=== PATIENT | female | born 1935 | race Caucasian/White ===

== ENCOUNTER 2016-06-02 18:44 | Inpatient (IN) | payer MEDICARE, OTHER ==
[2016-06-03] VITALS (7 sets, daily range): BP systolic 109–148; BP diastolic 54–75
[2016-06-03 02:02] LABS: GLUCOSE COMMENT 1 Received Meds; GLUCOSE,POINT OF CARE 154 MG/DL (70-110)
[2016-06-03] MEDS ORDERED: ACETAMINOPHEN 325 MG TABLET PO PRN (05:15)
[2016-06-03] MEDS ORDERED: DEXTROSE 50%-WATER 25 GM/50 ML SYRINGE IVP PRN (05:30)
[2016-06-03] MEDS: OxyCODONE HCL/ACETAMINOPHEN 5-325 MG TABLET PO PRN ×3 (05:34→22:16)
[2016-06-03] MEDS ORDERED: FEXOFENADINE HCL 60 MG TABLET PO PRN (05:45)
[2016-06-03] MEDS: LINACLOTIDE 145 MCG CAPSULE PO SCH (06:30)
[2016-06-03] MEDS: RisperiDONE 1 MG TABLET PO SCH ×3 (06:44→20:02)
[2016-06-03] MEDS ORDERED: ALBUTEROL SULFATE 2.5 MG/0.5 ML NEB SOLUTION NEB SCH (07:00)
[2016-06-03 07:24] LABS: BASOPHILS % (AUTO) 1.1 % (0.0-2.0); EOSINOPHILS % (AUTO) 1.4 % (1.0-6.0); HEMATOCRIT 39.3 % (36-46); HEMOGLOBIN 12.8 g/dL (12.0-16.0); LYMPHOCYTES # (AUTO) 0.6 K/uL (1.0-4.8); LYMPHOCYTES % (AUTO) 11.7 % (22.0-44.0); MEAN CORPUSCULAR HEMOGLOBIN 28.6 pg (26.0-34.0); MEAN CORPUSCULAR HGB CONC 32.5 G/dL (31.0-37.0); MEAN CORPUSCULAR VOLUME 88 fL (80-100); MONOCYTES # (AUTO) 0.3 K/uL (0.1-1.0); MONOCYTES % (AUTO) 5.8 % (2.0-9.0); NEUTROPHILS # (AUTO) 4.2 K/uL (1.8-7.7); PLATELET COUNT (AUTO) 104 K/uL (150-450); RED BLOOD CELL COUNT(AUTO) 4.47 MIL/uL (4.00-5.20); RED CELL DISTRIBUTION WIDTH 15.6 % (11.5-14.5); WHITE BLOOD COUNT (AUTO) 5.2 K/uL (4.5-11.0)
[2016-06-03] MEDS ORDERED: 0.9% SODIUM CHLORIDE 5 ML NEB SOLUTION NEB ONE (07:27)
[2016-06-03 07:46] LABS: GLUCOSE COMMENT 1 Received Meds; GLUCOSE,POINT OF CARE 134 MG/DL (70-110)
[2016-06-03 07:48] LABS: ALBUMIN 3.8 g/dL (3.4-5.0); BILIRUBIN,TOTAL 0.4 mg/dL (0.1-1.0); CALCIUM, TOTAL 8.7 mg/dL (8.8-10.5); CREATININE 0.94 mg/dL (0.60-1.30); POTASSIUM 4.6 mmol/L (3.5-5.1); THYROID STIMULATING HORMONE 2.5 uIU/mL (0.36-3.74); TOTAL PROTEIN, SERUM 7.2 g/dL (6.4-8.2)
[2016-06-03] MEDS ORDERED: ALBUTEROL SULFATE 2.5 MG/0.5 ML NEB SOLUTION NEB PRN (09:00)
[2016-06-03] MEDS: DEXTROMETHORPHAN HBR/QUINIDINE 20/10 MG CAPSULE PO SCH ×2 (10:38→20:03)
[2016-06-03] MEDS: HEPARIN SODIUM,PORCINE 5,000 UNITS/ML VIAL SQ SCH ×2 (10:39→16:51)
[2016-06-03] MEDS: FERROUS SULFATE 325 MG EC TABLET PO SCH (10:39)
[2016-06-03] MEDS: ClonazePAM 0.5 MG TABLET PO SCH ×3 (10:39→20:02)
[2016-06-03] MEDS: OXcarbazepine 300 MG TABLET PO SCH ×2 (10:40→20:03)
[2016-06-03] MEDS: TraZODone HCL 50 MG TABLET PO SCH (10:40)
[2016-06-03] MEDS: CITALOPRAM HYDROBROMIDE 20 MG TABLET PO SCH (10:40)
[2016-06-03] MEDS: LISINOPRIL 5 MG TABLET PO SCH (10:40)
[2016-06-03] MEDS: PANTOPRAZOLE SODIUM 40 MG DR TABLET PO SCH (10:40)
[2016-06-03] MEDS: POTASSIUM CHLORIDE 10 MEQ ER TABLET PO SCH (10:42)
[2016-06-03] MEDS ORDERED: INFLUENZA VIRUS VACCINE QVS 2016-17 (3YR+)/PF 60 MCG/0.5 ML SYRINGE IM ONE (11:30)
[2016-06-03] MEDS: INSULIN ASPART 100 UNITS/ML SQ PRN ×3 (11:39→20:17)
[2016-06-03 11:47] LABS: GLUCOSE,POINT OF CARE 131 MG/DL (70-110)
[2016-06-03 16:12] LABS: APPEARANCE,URINE CLOUDY (CLEAR); GLUCOSE, URINE (UA) NEGATIVE (NEGATIVE); KETONES,URINE NEGATIVE (NEGATIVE); LEUKOCYTE ESTERASE ,URINE MODERATE (NEGATIVE); OCCULT BLOOD,URINE NEGATIVE (NEGATIVE); PH,URINE 5.5 (5.0-8.0); PROTEIN,URINE NEGATIVE (NEGATIVE)
[2016-06-03 16:14] LABS: ADD UA MICROSCOPIC YES
[2016-06-03 16:22] LABS: RBC,URINE None Seen /HPF (0-2); SQUAMOUS EPITHELIAL CELL,UR Few /LPF (None Seen)
[2016-06-03] MEDS: LORazepam 2 MG/ML VIAL IVP PRN (16:45)
[2016-06-03 19:37] LABS: GLUCOSE COMMENT 1 Received Meds; GLUCOSE,POINT OF CARE 231 MG/DL (70-110)
[2016-06-03] MEDS: ZOLPIDEM TARTRATE 5 MG TABLET PO PRN (20:02)
[2016-06-03 20:52] LABS: GLUCOSE,POINT OF CARE 151 MG/DL (70-110)
[2016-06-04] MEDS: HEPARIN SODIUM,PORCINE 5,000 UNITS/ML VIAL SQ SCH ×4 (00:31→23:54)
[2016-06-04] MEDS: LORazepam 2 MG/ML VIAL IVP PRN ×4 (01:43→22:19)
[2016-06-04] MEDS: OxyCODONE HCL/ACETAMINOPHEN 5-325 MG TABLET PO PRN ×2 (02:19→13:30)
[2016-06-04] MEDS: LINACLOTIDE 145 MCG CAPSULE PO SCH (05:02)
[2016-06-04] MEDS: INSULIN ASPART 100 UNITS/ML SQ PRN ×4 (05:04→20:22)
[2016-06-04 05:25] VITALS: BP 106/57
[2016-06-04 07:47] LABS: GLUCOSE,POINT OF CARE 106 MG/DL (70-110)
[2016-06-04 08:19] VITALS: BP 131/56
[2016-06-04] MEDS: POTASSIUM CHLORIDE 10 MEQ ER TABLET PO SCH (10:30)
[2016-06-04] MEDS: LEVOFLOXACIN 500 MG/D5% WATER 100 ML IV SCH (10:30)
[2016-06-04] MEDS ORDERED: SODIUM CHLORIDE 0.9% 500 ML IV ONE (10:30)
[2016-06-04] MEDS: TraZODone HCL 50 MG TABLET PO SCH (10:31)
[2016-06-04] MEDS: LISINOPRIL 5 MG TABLET PO SCH (10:31)
[2016-06-04] MEDS: ClonazePAM 0.5 MG TABLET PO SCH ×3 (10:31→20:21)
[2016-06-04] MEDS: PANTOPRAZOLE SODIUM 40 MG DR TABLET PO SCH (10:31)
[2016-06-04] MEDS: FERROUS SULFATE 325 MG EC TABLET PO SCH (10:31)
[2016-06-04] MEDS: DEXTROMETHORPHAN HBR/QUINIDINE 20/10 MG CAPSULE PO SCH ×2 (10:32→20:21)
[2016-06-04] MEDS: RisperiDONE 1 MG TABLET PO SCH ×2 (10:32→20:21)
[2016-06-04] MEDS: OXcarbazepine 300 MG TABLET PO SCH ×2 (10:32→20:21)
[2016-06-04] MEDS: CITALOPRAM HYDROBROMIDE 20 MG TABLET PO SCH (10:32)
[2016-06-04 11:10] VITALS: BP 130/55
[2016-06-04 12:17] LABS: GLUCOSE COMMENT 1 Received Meds; GLUCOSE,POINT OF CARE 191 MG/DL (70-110)
[2016-06-04 15:35] VITALS: BP 128/62
[2016-06-04 19:47] LABS: GLUCOSE COMMENT 1 Received Meds; GLUCOSE,POINT OF CARE 164 MG/DL (70-110)
[2016-06-04 20:07] VITALS: BP 147/75
[2016-06-04] MEDS: ZOLPIDEM TARTRATE 5 MG TABLET PO PRN (20:21)
[2016-06-04 20:36] LABS: GLUCOSE COMMENT 1 Received Meds; GLUCOSE,POINT OF CARE 219 MG/DL (70-110)
[2016-06-04 23:10] VITALS: BP 148/70
[2016-06-05 05:03] VITALS: BP 118/51
[2016-06-05 06:11] LABS: BASOPHILS % (AUTO) 0.3 % (0.0-2.0); EOSINOPHILS % (AUTO) 2.9 % (1.0-6.0); HEMATOCRIT 35.5 % (36-46); HEMOGLOBIN 11.7 g/dL (12.0-16.0); LYMPHOCYTES # (AUTO) 0.9 K/uL (1.0-4.8); LYMPHOCYTES % (AUTO) 24.6 % (22.0-44.0); MEAN CORPUSCULAR HEMOGLOBIN 28.9 pg (26.0-34.0); MEAN CORPUSCULAR VOLUME 88 fL (80-100); MONOCYTES # (AUTO) 0.3 K/uL (0.1-1.0); MONOCYTES % (AUTO) 7.4 % (2.0-9.0); NEUTROPHILS # (AUTO) 2.3 K/uL (1.8-7.7); NEUTROPHILS % (AUTO) 64.8 % (40.0-70.0); RED BLOOD CELL COUNT(AUTO) 4.05 MIL/uL (4.00-5.20); RED CELL DISTRIBUTION WIDTH 16.1 % (11.5-14.5); WHITE BLOOD COUNT (AUTO) 3.5 K/uL (4.5-11.0)
[2016-06-05 06:25] LABS: ALBUMIN 3.3 g/dL (3.4-5.0); BILIRUBIN,TOTAL 0.2 mg/dL (0.1-1.0); CALCIUM, TOTAL 8.5 mg/dL (8.8-10.5); CREATININE 0.95 mg/dL (0.60-1.30); POTASSIUM 4.6 mmol/L (3.5-5.1); TOTAL PROTEIN, SERUM 6.5 g/dL (6.4-8.2)
[2016-06-05] MEDS: LINACLOTIDE 145 MCG CAPSULE PO SCH (06:44)
[2016-06-05 07:20] VITALS: BP 148/68
[2016-06-05 07:28] LABS: HEMOGLOBIN A1C 5.7 % (4.5-6.2)
[2016-06-05 07:56] LABS: PLATELET COUNT (AUTO) 82 K/uL (150-450); RBC MORPHOLOGY COMMENT NORMAL RBC MORPH
[2016-06-05] MEDS: PANTOPRAZOLE SODIUM 40 MG DR TABLET PO SCH (08:01)
[2016-06-05] MEDS: TraZODone HCL 50 MG TABLET PO SCH (08:01)
[2016-06-05] MEDS: FERROUS SULFATE 325 MG EC TABLET PO SCH (08:01)
[2016-06-05] MEDS: LISINOPRIL 5 MG TABLET PO SCH (08:02)
[2016-06-05] MEDS: ClonazePAM 0.5 MG TABLET PO SCH (08:02)
[2016-06-05] MEDS: RisperiDONE 1 MG TABLET PO SCH (08:02)
[2016-06-05] MEDS: OXcarbazepine 300 MG TABLET PO SCH (08:03)
[2016-06-05] MEDS: DEXTROMETHORPHAN HBR/QUINIDINE 20/10 MG CAPSULE PO SCH (08:04)
[2016-06-05] MEDS: POTASSIUM CHLORIDE 10 MEQ ER TABLET PO SCH (08:07)
[2016-06-05] MEDS: HEPARIN SODIUM,PORCINE 5,000 UNITS/ML VIAL SQ SCH (08:08)
[2016-06-05] MEDS: LEVOFLOXACIN 500 MG/D5% WATER 100 ML IV SCH (08:09)
[2016-06-05 11:02] LABS: GLUCOSE,POINT OF CARE 87 MG/DL (70-110)
[2016-06-05] MEDS: LORazepam 2 MG/ML VIAL IVP PRN (11:02)
[2016-06-05] MEDS: INSULIN ASPART 100 UNITS/ML SQ PRN (11:09)
[2016-06-05 11:46] LABS: GLUCOSE COMMENT 1 Received Meds; GLUCOSE,POINT OF CARE 205 MG/DL (70-110)
[2016-06-05 12:47] VITALS: BP 138/63
[2016-06-05] MEDS ORDERED: LEVO500T62 PO (17:16)
== END 2016-06-05 17:00 | DRG 871 ==
LOC: 6N 23:35
PROVIDERS: ADMIT Hospitalist; ATTEND Hospitalist
DX: A41.9 Sepsis, unspecified organism (principal); G93.41 Metabolic encephalopathy; N39.0 Urinary tract infection, site not specified; E87.1 Hypo-osmolality and hyponatremia; D69.6 Thrombocytopenia, unspecified; J44.9 Chronic obstructive pulmonary disease, unspecified; E11.42 Type 2 diabetes mellitus with diabetic polyneuropathy; I10 Essential (primary) hypertension; E78.5 Hyperlipidemia, unspecified; F31.9 Bipolar disorder, unspecified; G40.909 Epilepsy, unspecified, not intractable, without status epilepticus; G89.29 Other chronic pain; B96.20 Unspecified Escherichia coli [E. coli] as the cause of diseases classified elsewhere; B95.1 Streptococcus, group B, as the cause of diseases classified elsewhere; B96.89 Other specified bacterial agents as the cause of diseases classified elsewhere; F03.90 Unspecified dementia, unspecified severity, without behavioral disturbance, psychotic disturbance, mood disturbance, and anxiety
CPT/HCPCS: 70450; 82306; 82962; 83036; 84443; 87040; 87081; 87086; 87147; J1644; J1956; J2060; J7040